=== PATIENT | male | born 2005 | race Hispanic/Latino ===

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

== ENCOUNTER 2023-05-09 13:00 | Emergency (ER) | payer MEDICAID ==
[~2023-05-09] VITALS: Ht 167.6 cm; Wt 63.5 kg
[2023-05-09 13:18] VITALS: BP 113/89; PULSE 63; RESP 17
== END 2023-05-09 15:51 | disposition home or self-care (01) ==
LOC: EDH 13:00
DX: S91.112D Laceration without foreign body of left great toe without damage to nail, subsequent encounter (principal); X58.XXXD Exposure to other specified factors, subsequent encounter